=== PATIENT | male | born 1950 | race Hispanic/Latino ===

== ENCOUNTER 2021-12-25 12:27 | Emergency (ER) | payer MEDICARE, OTHER ==
[~2021-12-25] VITALS: Ht 170.2 cm; Wt 88.5 kg
[2021-12-25] MEDS ORDERED: PREDNISONE 20 MG TAB PO ONE (13:00)
[2021-12-25] MEDS ORDERED: CLONIDINE HCL 0.2 MG TAB PO ONE (13:00)
[2021-12-25] MEDS ORDERED: METHOCARBAMOL 500 MG TAB PO ONE (13:00)
[2021-12-25] MEDS ORDERED: HYDROCODONE/APAP 7.5MG-325MG 1 EA TAB PO PRN (13:00)
[2021-12-25] MEDS ORDERED: PREDNISONE50 MG PO (14:54)
[2021-12-25] MEDS ORDERED: METHOCARBAMOL750 MG PO (14:54)
[2021-12-25] MEDS ORDERED: ULTRAM 50MG50 MG PO (14:54)
[2021-12-25] MEDS ORDERED: KETOROLAC TROME10 MG PEG (14:56)
== END 2021-12-25 15:14 | disposition home or self-care (01) ==
LOC: ER 12:39
DX: M54.42 Lumbago with sciatica, left side (principal); W20.8XXA Other cause of strike by thrown, projected or falling object, initial encounter; Y92.89 Other specified places as the place of occurrence of the external cause; E11.65 Type 2 diabetes mellitus with hyperglycemia; I10 Essential (primary) hypertension
CPT/HCPCS: 36415; 72100; 82948; 99284; J7512